=== PATIENT | male | born 1950 | race Caucasian/White ===

== ENCOUNTER 2021-08-13 12:47 | Emergency (ER) | payer MEDICARE, OTHER ==
[~2021-08-13] VITALS: Ht 177.8 cm; Wt 88.0 kg
[2021-08-13 12:52] VITALS: BP 127/80
[2021-08-13] MEDS ORDERED: BUDE180A INH (14:18)
[2021-08-13] MEDS ORDERED: ALBU6.7H9 INH (14:18)
--- NOTE | 2021-08-13 14:25 | NUR ---
Pt given and understands d/c instructions. Ambulatory with a steady gait.
--- NOTE | 2021-08-15 17:17 | NUR ---
PT CALLED EARLIER THIS AM REGARDING HAVING DIFFICULTY GETTING HIS RX FOR HIS NEBULIZER. HE HAS NOT BEEN ABLE TO GET THE ADDITIONAL MEDICATION RECOMMENDED. CONSULTED WITH ADRIENNE BETHEA AND PT WAS INFORMED THAT THE MEDICATION THAT WAS TRANSMITTED; PROVENTAL INHALER AND PUMICORT FLEXHALER WAS WHAT HE AND THE PTS PHYSICIAN DISCUSSED AND WAS RECOMMENDED. PT STATES THAT HE WAS ALSO RECOMMENDED TO HAVE AN ADDIONAL MEDICATION FOR HIS NEBULIZER AND THAT HE PREVIOUS MEDICATION WAS TO HOLD HIM OVER DURING THE WEEKEND. PER Yadi LONDON, AN RX FOR A NEBULIZER MEDICATION WOULD BE TRANSMITTED TO [facility] REQUESTED. PT'S DAUGHTER CALLED AND STATES THAT [facility] HAS NOT RECEIVED THE NEW MEDICATION REQUEST FOR PT'S NEBULIZER. ADRIENNE HERNANDEZ WAS UNABLE TO TRANSMIT THE RX AND THE PHARMACY WAS CALLED WITH THE RX REQUEST FOR ALBUTERAL NEBULIZER SOLUTION; 2.5MG Q4HR PRN, #30 DAYS. PT AND PT'S DAUGHTER WERE CALLED AND NOTIFIED THAT THE NEW RX WAS CALLED INTO [facility] REQUESTED.
== END 2021-08-13 14:25 | disposition home or self-care (01) ==
LOC: ER 12:49
DX: U07.1 COVID-19 (principal); R05.9 Cough, unspecified; J40 Bronchitis, not specified as acute or chronic; Z79.899 Other long term (current) drug therapy; Z95.0 Presence of cardiac pacemaker; Z72.89 Other problems related to lifestyle
CPT/HCPCS: 71045; 99283